=== PATIENT | female | born 1940 | race Caucasian/White ===

== ENCOUNTER 2016-08-23 13:26 | Observation (INO) | payer OTHER ==
--- NOTE | 2016-08-23 13:38 | EDPHY ---
H & P Stated Complaint: Chest pressure since falling yesterday. dizziness HPI/ROS: CHIEF COMPLAINT: Chest pressure. HISTORY OF PRESENT ILLNESS: The patient is a 75-year-old female with a history of hypertension who presents with intermittent chest pressure over the past few weeks. Moving alleviates the pressure. She reports that yesterday she looked up at a tree and immediately felt room-spinning dizziness and fell. Since then she has felt "lousy" and is still complaining of the chest pressure. She felt fine prior to getting dizzy. She still had minor dizziness this morning. She used to get anxiety attacks and reports these symptoms feel similar. She had some diarrhea last night. She denies fever, vomiting, abdominal pain, or other complaints. She describes her chest discomfort as a "pressure", no radiation. Aside from the vertigo she had no associated or related symptoms. She does not feel short of breath. She does not have nausea. REVIEW OF SYSTEMS: A ten point review of systems was performed and is negative with the exception of the items mentioned in the HPI. Source: Patient Exam Limitations: No limitations - Personal History Current Tetanus/Diphtheria Vaccine: Yes Current Tetanus Diphtheria and Acellular Pertussis (TDAP): Yes Tetanus Vaccine Date: >10 YRS - Medical/Surgical History Other PMH: HTN, PMR, anxiety. - Social History Additional Social History: , nonsmoker, social alcohol use. - Physical Exam Exam: General Appearance: Alert. Vital signs reviewed. Blood pressure 165/105, heart rate 110 at triage. Eyes: Pupils equal and round, no conjunctival injection, no discharge. Anicteric. ENT, Mouth: Mucous membranes are moist, no oropharyngeal erythema or edema. Neck: No lymphadenopathy, supple. No jugular venous distention. Respiratory: Lungs are clear to auscultation; no wheezes, rales, or rhonchi. Thorax: Nontender with palpation of the rib cage. No crepitus. Cardiovascular: Regular rate and rhythm; no murmur, rub, or gallop. Gastrointestinal: Abdomen is soft and nontender, no masses or organomegaly, bowel sounds normal. Skin: Warm and dry, no rashes on exposed skin, normal color. Back: Nontender to palpation over the thoracolumbar spine. No CVAT. Extremities: No lower extremity edema, no calf tenderness or swelling. Neurological: Alert and oriented. Moving all four extremities easily and equally. Psychiatric: Normal affect. Constitutional: Initial Vital Signs Temperature (C) 36.6 C 08/23/16 13:32 Heart Rate 110 H 08/23/16 13:32 Respiratory Rate 17 08/23/16 13:32 Blood Pressure 165/105 H 08/23/16 13:32 O2 Sat (%) 95 08/23/16 13:32 O2 Delivery Mode Room Air Allergies/Adverse Reactions: nickel [Nickel] Allergy (Intermediate, Verified 08/15/10 09:50) RASH FROM WATCH BAND No Allergies [NKDA] Allergy (Verified 08/15/10 09:49) Home Medications: Medication Instructions Recorded Herbals/Supplements -Info Only 1 ea PO DAILY 08/23/16 Latanoprost 0.005% [Xalatan 0.005% 1 drops EACHEYE HS 08/23/16 (*)] Lisinopril/Hctz 20/12.5MG 1 ea PO DAILY 08/23/16 [Zestoretic/Prinzide 20/12.5MG (*)] predniSONE 10 mg PO DAILY 08/23/16 Medical Decision Making - Diagnostics EKG Interpretation: 12 lead EKG is interpreted in Trace master View, it shows sinus tachycardia with PVCs. Imaging Results: Two-view chest x-ray reviewed by me. No acute pulmonary disease. ED Course/Re-evaluation: 75-year-old female with a history of hypertension presents with chest pressure for the past few weeks. Yesterday she describes having an episode of vertigo, which she has had before. On presentation she is tachycardic and hypertensive. An IV was established and labs ordered. Chest x-ray, EKG ordered. I reviewed the patient's laboratory studies. WBC elevated at 12.48. Troponin is negative. Aside from tachycardia she does not have other signs of symptoms that suggest pulmonary embolus. She is at relatively low risk for an acute coronary syndrome, however, I am recommending serial troponins and possible stress testing as warranted. There is nothing in her history to suggest an infectious process. I think that her vertigo was just that--benign positional vertigo. I do not suspect a central process. 1447: Reassessed patient. Discussed results of laboratory studies. I recommended admission to her. She is comfortable with this plan. 1454: Consulted with hospitalist. Dr. Lima accepts admission. Differential Diagnosis: Chest pain including but not limited to myocardial ischemia, pulmonary embolus, chest wall pain, pleural inflammation and pulmonary infectious causes. - Data Points Laboratory Results: Laboratory Results 08/23/16 13:48 08/23/16 13:48 Medications Given: Discontinued Medications Aspirin (Aspirin) 324 mg PO EDNOW ONE Stop: 08/23/16 13:58 Last Admin: 08/23/16 14:02 Dose: 324 mg Lisinopril/HCTZ (Zestoretic) 1 ea PO DAILY GUERRERO Stop: 02/20/17 08:59 Last Admin: 08/24/16 08:55 Dose: 1 ea Potassium Chloride/Dextrose/Sod Cl (D5w 1/2 Ns W/ 20 Kcl/L) 1,000 mls @ 125 mls /hr IV CONT GUERRERO Stop: 02/19/17 16:14 Last Admin: 08/23/16 22:33 Dose: 1,000 mls Sodium Chloride (Ns) 500 mls @ 999 mls/hr IV ONCE ONE Stop: 08/23/16 16:41 Last Admin: 08/23/16 16:35 Dose: 500 mls Latanoprost (Xalatan 0.005%) 1 drops EACHEYE HS GUERRERO Stop: 02/19/17 20:59 Last Admin: 08/23/16 22:31 Dose: Not Given Prednisone (Prednisone) 10 mg PO DAILY GUERRERO Stop: 02/20/17 08:59 Last Admin: 08/24/16 11:03 Dose: Not Given Departure - Departure Disposition: [facility] Inpatient Acute Clinical Impression: Chest pressure Condition: Fair Report Scribed for: Cynthia Hou Report Scribed by: Tung Medrano Date of Report: 08/23/16 Time of Report: 13:45 Physician Review and Approval Statement: 08/23/16 13:38 Portions of this note were transcribed by the medical practice assistant. I, Dr. Cynthia Hou, personally performed the history, physical exam, and medical decision- making; and confirmed the accuracy of the information in the transcribed note.
--- NOTE | 2016-08-23 13:43 | CPEKG ---
Heart Rate: 121 RR Interval: 496 P-R Interval: 152 QRSD Interval: 72 QT Interval: 316 QTC Interval: 449 P [place]: 47 QRS [place]: 33 T Wave [place]: 46 EKG Severity - ABNORMAL ECG - EKG Impression: SINUS TACHYCARDIA EKG Impression: VENTRICULAR PREMATURE COMPLEX Electronically Signed By: Miguel Heredia 24-Aug-2016 11:43:27
[2016-08-23] MEDS ORDERED: ASPIRIN 81 MG CHEWABLE TAB PO ONE (13:57)
[2016-08-23 14:10] LABS: % IMMATURE GRANULYOCYTES 0.5 % (0.0-1.1); ABSOLUTE IMMATURE GRANULOCYTES 0.06 10^3/uL (0.00-0.10); ADD DIFF? NO; ADD MORPH? NO; ADD SCAN? NO; ATYPICAL LYMPHOCYTE FLAG 10 (0-99); FRAGMENT RBC FLAG 0 (0-99); HEMATOCRIT 47.8 % (38.0-47.0); HEMOGLOBIN 15.5 g/dL (12.6-16.3); LEFT SHIFT FLG 0 (0-99); LIPEMIA HEMOLYSIS FLAG 80 (0-99); MEAN CELL HEMOGLOBIN 27.6 pg (27.9-34.1); MEAN CELL HEMOGLOBIN CONCENTR. 32.4 g/dL (32.4-36.7); MEAN CELL VOLUME 85.2 fL (81.5-99.8); MEAN PLATELET VOLUME 10.4 fL (8.7-11.7); PLATELET CLUMPS FLAG 10 (0-99); PLATELET COUNT 458 10^3/uL (150-400); RED BLOOD CELL COUNT 5.61 10^6/uL (4.18-5.33); RED CELL DISTRIBUTION WIDTH 16.2 % (11.5-15.2)
[2016-08-23 14:25] LABS: ANION GAP 13 mEq/L (8-16); C-REACTIVE PROTEIN 9.4 mg/L (<10.0); CALCIUM 10.6 mg/dL (8.5-10.4); CARBON DIOXIDE 26 mEq/l (22-31); CHLORIDE 100 mEq/L (97-110); CREATININE 0.8 mg/dL (0.6-1.0); GLOMERULAR FILTRATION RATE > 60; GLUCOSE 163 mg/dL (70-100); POTASSIUM 4.1 mEq/L (3.5-5.2); SODIUM 139 mEq/L (134-144)
[2016-08-23 14:31] LABS: TROPONIN I < 0.012 ng/mL (0-0.034)
--- NOTE | 2016-08-23 15:15 | CPEKG ---
Heart Rate: 96 RR Interval: 625 P-R Interval: 132 QRSD Interval: 70 QT Interval: 356 QTC Interval: 450 P [place]: 78 QRS [place]: 30 T Wave [place]: 38 EKG Severity - ABNORMAL ECG - EKG Impression: SINUS RHYTHM EKG Impression: ARCHANA, CONSIDER BIATRIAL ABNORMALITIES Electronically Signed By: Miguel Heredia 24-Aug-2016 11:43:10
--- NOTE | 2016-08-23 15:59 | PDCPHP ---
History and Physical Chief Complaint: chest pressure - History of Present Illness This is a 75 yo,White,Female with history of hypertension presents with chest pressure. She reports having a dizzy spell yesterday at which time she fell and landed on the grass. Denies LOC. She has not had much to eat or drink over the past 24 hours. She is unsure when the chest pressure started yesterday. The pressure is described as moderate and localized to the sternum and upper stomach. She denies any exertional pain. Since the onset of the pressure it has been intermittent. She denies any alleviated factors. She thinks it may be related to stress, since she has been worried about the current world political situation. Denies history of prolonged inactivity or travel. Currently she is chest pressure free. History Information - Allergies/Home Medication List Allergies/Adverse Reactions: nickel [Nickel] Allergy (Intermediate, Verified 08/15/10 09:50) RASH FROM WATCH BAND No Allergies [NKDA] Allergy (Verified 08/15/10 09:49) Home Medications: Herbals/Supplements -Info Only 1 ea PO DAILY 08/23/16 [Last Taken Unknown] Latanoprost 0.005% [Xalatan 0.005% (*)] 1 drops EACHEYE HS 08/23/16 [Last Taken 08/22/16] Lisinopril/Hctz 20/12.5MG [Zestoretic/Prinzide 20/12.5MG (*)] 1 ea PO DAILY [Last Taken 08/23/16] predniSONE 10 mg PO DAILY 08/23/16 [Last Taken 08/23/16] I have personally reviewed and updated: family history, medical history, social history, surgical history Past Medical History: Anxiety/panic, hypertension - Surgical History Reports: hysterectomy Additional surgical history: right total hip, c/s x2 - Social History Alcohol Use: None Drug Use: None Review of Systems ROS: 10pt was reviewed & negative except for what was stated in HPI & below JAVON Risk Evaluation age greater or equal to 65: yes greater or equal to 3 CAD risk factors: no known CAD(stenosis greater or eqaul to 50%): no ASA use in past 7 days: no severe angina(greater or equal to 2 episodes in 24hrs): no EKG ST changes greater or equal to 0.5mm: no positive cardiac marker: no Total Score: 1 JAVON Score: 4.7% risk Physical Exam Temp Pulse Resp BP Pulse Ox 36.2 C 103 H 16 149/96 H 96 08/23/16 15:35 08/23/16 15:35 08/23/16 15:35 08/23/16 15:35 08/23/16 15:35 Constitutional: no apparent distress, appears nourished, not in pain Eyes: PERRL, anicteric sclera, EOMI Ears, Nose, Mouth, Throat: hearing normal, ears appear normal, no oral mucosal ulcers, dry mucous membranes Cardiovascular: regular rate and rhythym, no murmur, rub, or gallop, tachycardia , No edema Respiratory: no respiratory distress, no rales or rhonchi, clear to auscultation , No rhonchi Gastrointestinal: normoactive bowel sounds, soft, non-tender abdomen, no palpable masses, No hepatosplenomegally, No guarding, No rebound Genitourinary: no bladder fullness, no bladder tenderness Skin: warm, normal color, no rashes or abrasions, no fluctuance, no induration, other (poor turgor), No mottled Neurologic: AAOx3, CN II-XII Intact, No weakness, No numbness, No facial droop Psychiatric: interacting appropriately, not encephalopathic, anxious Lymph, Heme, Immunologic: no cervical LAD, no supraclavicular LAD Lab Data & Imaging Review 08/23/16 13:48 08/23/16 13:48 WBC 12.48 10^3/uL (3.80-9.50) H 08/23/16 13:48 RBC 5.61 10^6/uL (4.18-5.33) H 08/23/16 13:48 Hgb 15.5 g/dL (12.6-16.3) 08/23/16 13:48 Hct 47.8 % (38.0-47.0) H 08/23/16 13:48 MCV 85.2 fL (81.5-99.8) 08/23/16 13:48 MCH 27.6 pg (27.9-34.1) L 08/23/16 13:48 MCHC 32.4 g/dL (32.4-36.7) 08/23/16 13:48 RDW 16.2 % (11.5-15.2) H 08/23/16 13:48 Plt Count 458 10^3/uL (150-400) H 08/23/16 13:48 MPV 10.4 fL (8.7-11.7) 08/23/16 13:48 Neut % (Auto) 84.0 % (39.3-74.2) H 08/23/16 13:48 Lymph % (Auto) 13.1 % (15.0-45.0) L 08/23/16 13:48 [place] % (Auto) 2.2 % (4.5-13.0) L 08/23/16 13:48 Eos % (Auto) 0.0 % (0.6-7.6) L 08/23/16 13:48 Baso % (Auto) 0.2 % (0.3-1.7) L 08/23/16 13:48 Nucleat RBC Rel Count 0.0 % (0.0-0.2) 08/23/16 13:48 Absolute Neuts (auto) 10.49 10^3/uL (1.70-6.50) H 08/23/16 13:48 Absolute Lymphs (auto) 1.63 10^3/uL (1.00-3.00) 08/23/16 13:48 Absolute Monos (auto) 0.28 10^3/uL (0.30-0.80) L 08/23/16 13:48 Absolute Eos (auto) 0.00 10^3/uL (0.03-0.40) L 08/23/16 13:48 Absolute Basos (auto) 0.02 10^3/uL (0.02-0.10) 08/23/16 13:48 Absolute Nucleated RBC 0.00 10^3/uL (0-0.01) 08/23/16 13:48 Immature Gran % 0.5 % (0.0-1.1) 08/23/16 13:48 Immature Gran # 0.06 10^3/uL (0.00-0.10) 08/23/16 13:48 Sodium 139 mEq/L (134-144) 08/23/16 13:48 Potassium 4.1 mEq/L (3.5-5.2) 08/23/16 13:48 Chloride 100 mEq/L (97-110) 08/23/16 13:48 Carbon Dioxide 26 mEq/l (22-31) 08/23/16 13:48 Anion Gap 13 mEq/L (8-16) 08/23/16 13:48 BUN 18 mg/dL (7-23) 08/23/16 13:48 Creatinine 0.8 mg/dL (0.6-1.0) 08/23/16 13:48 Estimated GFR > 60 08/23/16 13:48 Glucose 163 mg/dL (70-100) H 08/23/16 13:48 Calcium 10.6 mg/dL (8.5-10.4) H 08/23/16 13:48 Troponin I < 0.012 ng/mL (0-0.034) 08/23/16 13:48 C-Reactive Protein 9.4 mg/L (<10.0) 08/23/16 13:48 Visualized and Interpreted Chest x-ray results: Yes Chest X-Ray results: no infiltrate, normal Visualized and Interpreted EKG results: Yes EKG Interpretation: Positive for: normal sinsus rhythm (96 bpm), other (RAA). Negative for: ST elevation, ST depression Assessment and Plan Assessment: This is a 75 yo,White,F presenting with chest pressure at low risk ( JAVON 0- 1) for Acute coronary syndrome. #chest pressure sounds atypical query GERD/indigestion -send 6 hour troponin -trial antacids if discomfort returns -will order treadmill stress test which could possibly be done as an outpatient. She is scheduled to see Dr. Mujica on Friday #tachycardia with new mild hypercalcemia suspect dehydration -start ivf and encourage po intake -doubt PE in the setting of resolved chest pressure and lack of other signs -consider dimer/cta if tachycardia is not improving -check TSH #Anxiety -possibly contributing to her clinical presentation. recommend outpatient followup Plan: The patient will be placed in observation due to concerns for Acute Coronary Syndrome. * continuous telemetry to monitor for ST segment changes * monitor vital signs every 4 hours * morphine sulfate IV and nitroglycerin sublingual as needed for chest pain * repeat EKG in 6 hours to monitor for changes that would suggest ischemia or infarction * repeat EKG as needed for recurrent chest pain * repeat troponin in 4-6 hours after onset of chest pain * Arrange for [inpatient][outpatient]stress test once chest pain is resolved, repeat troponin and EKG are negative, and the patient is symptom free for greater than 6 hours from the onset of pain * If the patient develops dynamic EKG changes consistent with ischemia/ infarction, troponin elevation, or has an abnormal stress test the patient will be treated for acute coronary syndrome as clinically indicated. * []
[2016-08-23] MEDS ORDERED: ACETAMINOPHEN 325 MG TAB PO PRN (16:09)
[2016-08-23] MEDS ORDERED: MAG HYDROX/AL HYDROX/SIMETH 30 ML UDCUP PO PRN (16:11)
[2016-08-23] MEDS ORDERED: NS 500 ML IV ONE (16:11)
[2016-08-23] MEDS ORDERED: D5W 1/2 NS W/ 20 KCl/L 1,000 ML IV SCH (16:15)
[2016-08-23] MEDS ORDERED: LATANOPROST 0.005% 2.5 ML OPHT DROPS EACHEYE SCH (21:00)
[2016-08-24 05:59] LABS: ANION GAP 7 mEq/L (8-16); CALCIUM 9.2 mg/dL (8.5-10.4); CARBON DIOXIDE 26 mEq/l (22-31); CHLORIDE 108 mEq/L (97-110); CREATININE 0.8 mg/dL (0.6-1.0); GLOMERULAR FILTRATION RATE > 60; GLUCOSE 92 mg/dL (70-100); POTASSIUM 4.7 mEq/L (3.5-5.2); SODIUM 141 mEq/L (134-144)
--- NOTE | 2016-08-24 08:39 | HOSPPROG ---
Hospitalist Progress Note Assessment/Plan: #Chest pressure: none. Stress test WNL #Hypercalcemia: resolved with IVFs #Leukocytosis: no infectious symptoms. Afebrile Disp- DC today Subjective: no chest pressure Objective: Vital Signs Temp Pulse Resp BP Pulse Ox 36.3 C 76 16 151/90 H 96 08/24/16 05:38 08/24/16 05:38 08/24/16 05:38 08/24/16 05:38 08/24/16 05:38 Laboratory Results 08/24/16 05:11 - Physical Exam Constitutional: no apparent distress Eyes: PERRL Ears, Nose, Mouth, Throat: moist mucous membranes Cardiovascular: regular rate and rhythym, edema (no edema) Respiratory: no respiratory distress Gastrointestinal: normoactive bowel sounds Genitourinary: no bladder fullness Skin: warm Musculoskeletal: full muscle strength Neurologic: AAOx3 Psychiatric: interacting appropriately ICD10 Worksheet Patient Problems: Problems Problem Status Onset Chest pressure Acute
[2016-08-24] MEDS ORDERED: Herbals/Supplements -Info Only PO SCH (09:00)
[2016-08-24] MEDS ORDERED: predniSONE 10 MG TAB PO SCH (09:00)
[2016-08-24] MEDS ORDERED: LISINOPRIL/HCTZ 20/12.5MG 1 EA TAB PO SCH (09:00)
--- NOTE | 2016-08-24 09:58 | PDCARST ---
CAR Stress Test Results Type of Stress Test: TM stress test Indication: chest discomfort Description of Procedure: After informed consent was obtained, pt was established to ECG, blood pressure, heart rate and oximetry monitoring. At b/l, pt is in SR with occasional monomorphic PVCs, BP was 154/88, HR 97, and oximetry wnl. Pt exercised for a total of 5 minutes on the [place] protocol achieving HR of 150, which is 104% of MPHR for age. There were no ischemic ECG changes. No cp. 1 PVC couplet seen in stage 2 and frequent PVCs. Exercise was stopped due to maximal effort. Peak BP 180/80. In recovery, there were occasional PVCs. Impression: DTS: +5/ occasional to frequent PVCs throughout stress test Conclusion: Follow up with cardiology as outpatient as scheduled.
[2016-08-24 09:59] VITALS: BP 129/91; PULSE 92; RESP 18; TEMP 97.9; O2SAT 95
--- NOTE | 2016-08-24 12:12 | GDS ---
[f rep st] DISCHARGE SUMMARY CHIEF COMPLAINT: Chest pressure. HISTORY OF PRESENT ILLNESS: The patient is a 75-year-old female with history of hypertension, prese nting with chest pressure. She reports having a dizzy spell in which she fell and landed on the gra ss, but did not lose consciousness. She did not have much to eat or drink over the past 24 hours. She describes the pressure as moderate, localized to the sternum and upper stomach. There was no as sociation with exertion. She thinks it might be related to stress, as she has been worried about th e current world publicly. HOSPITAL COURSE BY PROBLEM: 1. Chest pressure: Differential included anxiety versus dehydration versus stress versus acute cor onary syndrome. 2. Troponins and EKG were negative for ischemia. The patient underwent a treadmill test that was n egative. She should follow up with Dr. Mujica on Friday. 3. Tachycardia on admission, likely secondary to dehydration; this has since resolved with IV fluid s. TSH was normal. 4. Anxiety: Suspect that this is contributing to her clinical presentation. DISPOSITION: Patient is stable for discharge. FOLLOWUP: 1. Primary care physician. 2. Dr. Adry Mujica. /[id number]/MODL
== END 2016-08-24 11:43 | disposition home or self-care (01) ==
LOC: F1N 15:20
PROVIDERS: ADMIT Internal Medicine; ATTEND Internal Medicine
DX: R07.89 Other chest pain (principal); R00.0 Tachycardia, unspecified; R42 Dizziness and giddiness; F41.9 Anxiety disorder, unspecified; I10 Essential (primary) hypertension
CPT/HCPCS: 71020; 93005; 93017; G0378